=== PATIENT | male | born 1985 | race Two or more races ===

== ENCOUNTER 2020-02-23 23:19 | Emergency (ER) | payer SELFPAY ==
[~2020-02-23] VITALS: Ht 180.3 cm; Wt 89.8 kg
[2020-02-23 23:28] VITALS: BP 136/72
--- NOTE | 2020-02-23 23:51 | NUR ---
Palmer casiano in [facility] - 02/23/20 at 2351 by [facility] Patient discharged to home in stable condition. Written and verbal after care instructions given. Patient verbalizes understanding of instruction.
--- NOTE | 2020-02-23 23:53 | NUR ---
Patient discharged to home in stable condition. Written and verbal after care instructions given. Patient verbalizes understanding of instruction.
== END 2020-02-23 23:54 | disposition home or self-care (01) ==
LOC: ER 23:19
DX: S51.812A Laceration without foreign body of left forearm, initial encounter (principal); W26.0XXA Contact with knife, initial encounter; Y93.89 Activity, other specified; Y92.89 Other specified places as the place of occurrence of the external cause; Y99.8 Other external cause status
CPT/HCPCS: 99283; A6403